=== PATIENT | female | born 1960 | race Hispanic/Latino ===

== ENCOUNTER 2019-03-14 13:46 | Emergency (ER) | payer OTHER ==
[2019-03-14 14:42] LABS: APPEARANCE,URINE Clear (CLEAR); BASOPHILS % (AUTO) 0.5 % (0.0-5.0); BILIRUBIN,URINE Negative (NEGATIVE); COLOR,URINE Yellow (YELLOW); EOSINOPHILS % (AUTO) 3.7 % (0.0-8.0); GLUCOSE, URINE (UA) Negative (NEGATIVE); HEMATOCRIT 43.1 % (36-48); KETONES,URINE Negative (NEGATIVE); LEUKOCYTE ESTERASE ,URINE Negative (NEGATIVE); LYMPHOCYTES % (AUTO) 22.5 % (21.0-51.0); MEAN CORPUSCULAR HEMOGLOBIN 30.4 pg (27.0-33.0); MEAN CORPUSCULAR HGB CONC 32.9 g/dL (32.0-36.0); MEAN CORPUSCULAR VOLUME 92.5 fL (79-99); MONOCYTES % (AUTO) 6.5 % (3.0-13.0); NEUTROPHILS % (AUTO) 66.8 % (40.0-77.0); NITRATE,URINE Negative (NEGATIVE); OCCULT BLOOD,URINE Negative (NEGATIVE); PH,URINE 5.5 (5.0-8.0); PLATELET COUNT (AUTO) 200 K/uL (130-400); PROTEIN,URINE Negative (NEGATIVE); RED BLOOD CELL COUNT(AUTO) 4.66 MIL/uL (4.00-5.50); RED CELL DISTRIBUTION WIDTH 13.3 % (11.0-15.5); UROBILINOGEN,URINE 0.2 mg/dL (0.2-1.0); WHITE BLOOD COUNT (AUTO) 9.1 K/uL (4.8-10.8)
[2019-03-14 14:54] LABS: CREATININE 0.7 mg/dL (0.5-1.5); POTASSIUM 3.6 mmol/L (3.5-5.1)
[2019-03-14 14:56] LABS: INR 0.95 (0.85-1.15); PARTIAL THROMBOPLASTIN TIME 26.6 SEC (26.3-35.5)
[2019-03-14 14:59] LABS: ALBUMIN 3.7 g/dL (3.5-5.0); BILIRUBIN,TOTAL 0.3 mg/dL (0.2-1.0); TOTAL PROTEIN, SERUM 7.6 g/dL (6.0-8.3)
[2019-03-14 15:33] LABS: B-TYPE NATRIURETIC PEPTIDE 24 pg/mL (0-100)
[2019-03-14] MEDS ORDERED: KETOROLAC TROMETHAMINE 30MG/ML ONE (16:04)
== END 2019-03-14 16:12 | disposition home or self-care (01) ==
LOC: EDH 13:46
DX: M72.2 Plantar fascial fibromatosis (principal); M79.671 Pain in right foot; J45.909 Unspecified asthma, uncomplicated; I25.10 Atherosclerotic heart disease of native coronary artery without angina pectoris; I25.2 Old myocardial infarction; Z88.1 Allergy status to other antibiotic agents
CPT/HCPCS: 36415; 73630; 80053; 81003; 82550; 83880; 84484; 85025; 85610; 85730; 93005; 93926; 93971; 96372; 99285; J1885

== ENCOUNTER 2019-03-17 13:20 | Emergency (ER) | payer SELFPAY ==
[2019-03-17 13:42] LABS: BASOPHILS % (AUTO) 0.6 % (0.0-5.0); EOSINOPHILS % (AUTO) 4.5 % (0.0-8.0); HEMATOCRIT 40.4 % (36-48); LYMPHOCYTES % (AUTO) 21.3 % (21.0-51.0); MEAN CORPUSCULAR HEMOGLOBIN 31.2 pg (27.0-33.0); MEAN CORPUSCULAR HGB CONC 33.4 g/dL (32.0-36.0); MEAN CORPUSCULAR VOLUME 93.3 fL (79-99); MONOCYTES % (AUTO) 5.3 % (3.0-13.0); NEUTROPHILS % (AUTO) 68.3 % (40.0-77.0); PLATELET COUNT (AUTO) 185 K/uL (130-400); RED BLOOD CELL COUNT(AUTO) 4.33 MIL/uL (4.00-5.50); WHITE BLOOD COUNT (AUTO) 8.3 K/uL (4.8-10.8)
[2019-03-17] MEDS ORDERED: ASPIRIN 325 MG TABLET ONE (13:46)
[2019-03-17 13:48] LABS: CREATININE 0.7 mg/dL (0.5-1.5); POTASSIUM 4.2 mmol/L (3.5-5.1)
[2019-03-17 13:53] LABS: ALBUMIN 3.4 g/dL (3.5-5.0); BILIRUBIN,TOTAL 0.3 mg/dL (0.2-1.0); TOTAL PROTEIN, SERUM 6.9 g/dL (6.0-8.3)
[2019-03-17 14:06] LABS: INR 0.95 (0.85-1.15); PARTIAL THROMBOPLASTIN TIME 27.3 SEC (26.3-35.5)
[2019-03-17 14:18] LABS: B-TYPE NATRIURETIC PEPTIDE 28 pg/mL (0-100)
== END 2019-03-17 16:19 | disposition home or self-care (01) ==
LOC: EDH 13:20
DX: R07.89 Other chest pain (principal); R06.02 Shortness of breath; J45.909 Unspecified asthma, uncomplicated; I25.10 Atherosclerotic heart disease of native coronary artery without angina pectoris; I25.2 Old myocardial infarction; Z88.1 Allergy status to other antibiotic agents; Z98.890 Other specified postprocedural states
CPT/HCPCS: 36415; 71045; 80053; 82550; 83880; 84484; 85025; 85610; 85730; 93005

== ENCOUNTER 2019-04-25 14:52 | Emergency (ER) | payer SELFPAY ==
[2019-04-25] MEDS ORDERED: LIDOCAINE HCL 2% VISCOUS 15 ML UDCUP ONE (15:50)
[2019-04-25] MEDS ORDERED: MAG HYDROX/AL HYDROX/SIMETH ES 30 ML SUSP UDCUP ONE (15:50)
[2019-04-25] MEDS ORDERED: ONDANSETRON HCL 4 MG/2 ML VIAL ONE (15:51)
[2019-04-25] MEDS ORDERED: FAMOTIDINE/PF 20 MG/2 ML VIAL IV ONE (15:52)
[2019-04-25 15:54] LABS: BASOPHILS % (AUTO) 0.1 % (0.0-5.0); HEMATOCRIT 40.6 % (36-48); LYMPHOCYTES % (AUTO) 8.4 % (21.0-51.0); MONOCYTES % (AUTO) 5.4 % (3.0-13.0); NEUTROPHILS % (AUTO) 84.8 % (40.0-77.0); PLATELET COUNT (AUTO) 198 K/uL (130-400); RED BLOOD CELL COUNT(AUTO) 4.46 MIL/uL (4.00-5.50); RED CELL DISTRIBUTION WIDTH 12.6 % (11.0-15.5); WHITE BLOOD COUNT (AUTO) 10.4 K/uL (4.8-10.8)
[2019-04-25 16:05] LABS: CREATININE 0.9 mg/dL (0.5-1.5); POTASSIUM 3.4 mmol/L (3.5-5.1)
[2019-04-25 16:09] LABS: ALBUMIN 3.6 g/dL (3.5-5.0); BILIRUBIN,TOTAL 1.2 mg/dL (0.2-1.0); TOTAL PROTEIN, SERUM 7.3 g/dL (6.0-8.3)
[2019-04-25] MEDS ORDERED: KETOROLAC TROMETHAMINE 30MG/ML ONE (17:59)
== END 2019-04-25 18:26 | disposition home or self-care (01) ==
LOC: EDH 14:52
DX: K80.50 Calculus of bile duct without cholangitis or cholecystitis without obstruction (principal); R11.2 Nausea with vomiting, unspecified; Z88.1 Allergy status to other antibiotic agents; J45.909 Unspecified asthma, uncomplicated; I25.2 Old myocardial infarction; I70.90 Unspecified atherosclerosis; Z72.0 Tobacco use
CPT/HCPCS: 36415; 76705; 80053; 83690; 85025; 96361; 96374; 96375; 99285; J1885; J2405; J3490

== ENCOUNTER → 2020-11-27 | Outpatient (CLI) | payer OTHER | END | disposition home or self-care (01) | LOC: RAH 16:23 | PROVIDERS: ATTEND Family Medicine | DX: Z12.31 Encounter for screening mammogram for malignant neoplasm of breast (principal) | CPT/HCPCS: 77067 ==

== ENCOUNTER 2021-08-18 12:22 | Emergency (ER) | payer OTHER ==
[~2021-08-18] VITALS: Ht 149.9 cm; Wt 68.0 kg
[2021-08-18 12:25] VITALS: BP 139/81
[2021-08-18] MEDS ORDERED: NAPR-1180 PO (12:55)
[2021-08-18] MEDS ORDERED: KETOROLAC 15MG/ML VIAL (15MG/ML) IM ONE (13:00)
== END 2021-08-18 13:15 | disposition home or self-care (01) ==
LOC: EDH 12:22
DX: S63.502A Unspecified sprain of left wrist, initial encounter (principal); E78.00 Pure hypercholesterolemia, unspecified; J45.909 Unspecified asthma, uncomplicated; Z88.1 Allergy status to other antibiotic agents; Z98.890 Other specified postprocedural states; W19.XXXA Unspecified fall, initial encounter; Y93.89 Activity, other specified; Y92.89 Other specified places as the place of occurrence of the external cause; Y99.8 Other external cause status
CPT/HCPCS: 73090; 73110; 96372; 99284; J1885

== ENCOUNTER 2022-06-30 10:12 | Emergency (ER) | payer MEDICARE, OTHER ==
[~2022-06-30] VITALS: Ht 149.9 cm; Wt 68.0 kg
[~2022-06-30 10:12] MED LIST: NAPR-1180 PO
[2022-06-30] MEDS ORDERED: ONDANSETRON ODT 4MG TAB ONE (10:24)
[2022-06-30 11:12] LABS: APPEARANCE,URINE CLEAR (CLEAR); BILIRUBIN,URINE NEGATIVE (NEGATIVE); COLOR,URINE LIGHT-YELLOW (YELLOW); GLUCOSE, URINE (UA) NEGATIVE (NEGATIVE); KETONES,URINE NEGATIVE (NEGATIVE); LEUKOCYTE ESTERASE ,URINE 25 Leu/uL (NEGATIVE); NITRATE,URINE NEGATIVE (NEGATIVE); PH,URINE 5.5 (5.0-8.0); PROTEIN,URINE 70 mg/dL (NEGATIVE); UROBILINOGEN,URINE 0.2 mg/dL (0.2-1.0)
[2022-06-30 11:16] LABS: BACTERIA,URINE RARE /HPF (None Seen); MUCUS,URINE RARE LPF (None Seen); SQUAMOUS EPITHELIAL CELL,UR RARE /HPF (0-2)
[2022-06-30 11:16] LABS: BASOPHILS % (AUTO) 0.2 % (0.0-5.0); EOSINOPHILS % (AUTO) 1.6 % (0.0-8.0); HEMATOCRIT 43.9 % (36-48); LYMPHOCYTES % (AUTO) 4.4 % (21.0-51.0); MEAN CORPUSCULAR HEMOGLOBIN 27.9 pg (27.0-33.0); MEAN CORPUSCULAR HGB CONC 31.4 g/dL (32.0-36.0); MEAN CORPUSCULAR VOLUME 88.9 fL (79-99); MONOCYTES % (AUTO) 3.2 % (3.0-13.0); NEUTROPHILS % (AUTO) 90.1 % (40.0-77.0); PLATELET COUNT (AUTO) 173 K/uL (130-400); RED BLOOD CELL COUNT(AUTO) 4.94 MIL/uL (4.00-5.50); RED CELL DISTRIBUTION WIDTH 14.1 % (11.0-15.5)
[2022-06-30 11:19] LABS: CREATININE 0.8 mg/dL (0.5-1.5); POTASSIUM 4.3 mmol/L (3.5-5.1)
[2022-06-30 11:23] LABS: ALBUMIN 4.1 g/dL (3.5-5.0); TOTAL PROTEIN, SERUM 7.7 g/dL (6.0-8.3)
[2022-06-30] MEDS ORDERED: FAMOTIDINE 20MG VIAL IV ONE (12:00)
[2022-06-30] MEDS ORDERED: CEFTRIAXONE 1G VIAL IVP ONE (13:30)
[2022-06-30 13:33] VITALS: BP 113/75
[2022-06-30] MEDS ORDERED: IOHEXOL 350 MG/ML 100ML INFUS..BTL IV ONE (14:14)
[2022-06-30] MEDS ORDERED: DICY20TA2 PO (15:20)
[2022-06-30] MEDS ORDERED: ONDANSETRON 4MG INJ ONE (15:35)
[2022-06-30] MEDS ORDERED: ONDANSETRON 4MG INJ IVP ONE (16:00)
== END 2022-06-30 15:56 | disposition home or self-care (01) ==
LOC: EDH 10:12
DX: R10.9 Unspecified abdominal pain (principal); R11.2 Nausea with vomiting, unspecified; R10.13 Epigastric pain; E78.00 Pure hypercholesterolemia, unspecified; Z79.899 Other long term (current) drug therapy; Z20.822 Contact with and (suspected) exposure to COVID-19
CPT/HCPCS: 99285; 74177; 96374; 71045; 96375; 87635; 84484; 80053; 83690; 85025; 87088; 87804 ×2; 81001; 36415; 93005; C9803; J3490; J0696; J2405; Q9967

== ENCOUNTER 2022-07-31 17:04 | Emergency (ER) | payer MEDICARE ==
[~2022-07-31] VITALS: Ht 152.4 cm; Wt 66.7 kg
[~2022-07-31 17:04] MED LIST changes: +DICY20TA2 PO
[2022-07-31 20:39] LABS: APPEARANCE,URINE CLEAR (CLEAR); BILIRUBIN,URINE NEGATIVE (NEGATIVE); COLOR,URINE YELLOW (YELLOW); GLUCOSE, URINE (UA) NEGATIVE (NEGATIVE); KETONES,URINE NEGATIVE (NEGATIVE); LEUKOCYTE ESTERASE ,URINE NEGATIVE Leu/uL (NEGATIVE); NITRATE,URINE NEGATIVE (NEGATIVE); OCCULT BLOOD,URINE NEGATIVE (NEGATIVE); PROTEIN,URINE 10 mg/dL (NEGATIVE); UROBILINOGEN,URINE 0.2 mg/dL (0.2-1.0)
[2022-07-31 20:56] LABS: MUCUS,URINE RARE LPF (None Seen); RBC,URINE 0-1 /HPF (0-1); SQUAMOUS EPITHELIAL CELL,UR RARE /HPF (0-2)
[2022-07-31] MEDS ORDERED: D-ME118S47 PO (21:39)
[2022-07-31] MEDS ORDERED: PRED20TA3 PO ×2 (21:39→21:40)
[2022-07-31] MEDS ORDERED: BENZ200C53 PO (21:39)
[2022-07-31] MEDS ORDERED: LORA10TA7 PO (21:39)
[2022-07-31] MEDS ORDERED: BENZONATATE 100 MG CAPSULE PO STA (21:47)
[2022-07-31 22:00] VITALS: BP 122/78
== END 2022-07-31 22:03 | disposition home or self-care (01) ==
LOC: EDH 17:04
DX: J21.9 Acute bronchiolitis, unspecified (principal); J45.909 Unspecified asthma, uncomplicated; E78.00 Pure hypercholesterolemia, unspecified; Z79.1 Long term (current) use of non-steroidal anti-inflammatories (NSAID); Z88.1 Allergy status to other antibiotic agents; Z95.5 Presence of coronary angioplasty implant and graft; Z20.822 Contact with and (suspected) exposure to COVID-19
CPT/HCPCS: 99284; 71045; 87635; 87880; 87804 ×2; 81001; C9803

== ENCOUNTER → 2024-12-09 | Outpatient (CLI) | payer OTHER ==
[~2024-12-09] MED LIST changes: +BENZ200C53 PO; +BROM118S48 PO; +LORA10TA7 PO; +PRED20TA3 PO
--- NOTE | 2024-12-09 14:16 | HMCIMG ---
CLINICAL INDICATION: Asymptomatic menopausal state COMPARISON: None available TECHNIQUE: Bone densitometry is performed of the lumbar spine and left hip. FINDINGS: Total BMD of lumbar spine is 0.853 g/cm2 with a T-score of -1.8 and Z-score is -0.2. Total BMD of left hip is 0.857 g/cm2 with a T-score of -0.7 and Z-score is 0.4. FRAX SCORE: The 10 year fracture risk for a major osteoporotic fracture and hip fracture 19% IMPRESSION: 1. Osteopenia of the left hip and lumbar spine 2. I would recommend follow-up in 13 months. World Health Organization criteria for BMD interpretation classify patients as Normal (T-score at or above -1.0), Osteopenic (T-score between -1.0 and -2.5), or Osteoporotic (T-score at or below -2.5). FRAX SCORE: A. All treatment decisions require clinical judgment and consideration of individual patient factors, including patient preferences, comorbidities, previous drug use, risk factors not captured in the FRAX model (e.g., frailty, falls, vitamin D deficiency, increased bone turnover, interval significant decline in bone density) and possible [id number]-estimation of fracture risk by FRAX. B. In addition, the NOF Guide recommends that FDA-approved medical therapies be considered in postmenopausal women and men age greater than or equal to 50 years with a: i. Hip or vertebral (clinical or morphometric) fracture. ii. T-score of less than or equal to -2.5 at the spine or hip. iii. Ten-year fracture probability by FRAX of greater than or equal to 3% for hip fracture of greater than or equal to 20% for major osteoporotic fracture.
== END | disposition home or self-care (01) ==
LOC: RAH 09:43
PROVIDERS: ATTEND Family Medicine
DX: Z12.31 Encounter for screening mammogram for malignant neoplasm of breast (principal); M85.89 Other specified disorders of bone density and structure, multiple sites; Z78.0 Asymptomatic menopausal state
CPT/HCPCS: 77067; 77080